=== PATIENT | male | born 1985 | race Caucasian/White ===

== ENCOUNTER 2018-12-04 10:13 | Emergency (ER) | payer BC ==
[2018-12-04] MEDS ORDERED: Diphtheria,Pertussis(Acell),Tetanus Vaccine 0.5 ML Syringe IM ONE (10:25)
[2018-12-04] MEDS ORDERED: Octyl 2-Cyanoacrylate 1 Tube ONE (10:59)
[2018-12-04] MEDS ORDERED: Octyl 2-Cyanoacrylate 1 Tube TOP ONE (10:59)
--- NOTE | 2018-12-04 11:08 | EDM.PDOC ---
ED HPI GENERAL MEDICAL PROBLEM - General Chief Complaint: Laceration Stated Complaint: CUT HAND Time Seen by Provider: 12/04/18 10:18 Source of Information: Reports: Patient History Limitations: Reports: No Limitations - History of Present Illness INITIAL COMMENTS - FREE TEXT/NARRATIVE: HISTORY AND PHYSICAL: History of present illness: Patient is a 33-year-old male who presents to the emergency room with complaints of a laceration to the right palmar surface of his hand along the base of the thumb. He states he was walking on ice when he slipped and fell, landing his hand on a rock on the ground. Review of systems: As per history of present illness and below otherwise all systems reviewed and negative. Past medical history: As per history of present illness and as reviewed below otherwise noncontributory. Surgical history: As per history of present illness and as reviewed below otherwise noncontributory. Social history: See social history for further information Family history: As per history of present illness and as reviewed below otherwise noncontributory. Physical exam: General: Well-developed and well-nourished 33-year-old male. Alert and oriented. Nontoxic appearing and in no acute distress. HEENT: Atraumatic, normocephalic, pupils equal and reactive bilaterally, negative for conjunctival pallor or scleral icterus, mucous membranes moist, TMs normal bilaterally, throat clear, neck supple, nontender, trachea midline. No drooling or trismus noted. No meningeal signs. No hot potato voice noted. Lungs: Clear to auscultation, breath sounds equal bilaterally, chest nontender. Heart: S1S2, regular rate and rhythm without overt murmur Abdomen: Soft, nondistended, nontender. Negative for masses or hepatosplenomegaly. Negative for costovertebral tenderness. Pelvis: Stable nontender. Genitourinary: Deferred. Rectal: Deferred. Skin: 7 cm linear laceration across the palmar surface of the right hand near the base of the thumb. 5 cm of this is gaping, the other 2 cm superficial. Otherwise skin is intact, warm, dry. No lesions or rashes noted. Extremities: Atraumatic, negative for cords or calf pain. Neurovascular unremarkable. Neuro: Awake, alert, oriented. Cranial nerves II through XII unremarkable. Cerebellum unremarkable. Motor and sensory unremarkable throughout. Exam nonfocal. Notes: Area was thoroughly cleansed and irrigated with wound wash. 1% lidocaine was used to anesthetize the area. Sterile unusual customary procedures were followed for suture placement. 4-0 nylon, #10 sutures were placed to the open laceration, Dermabond was used along the 2 cm superficial laceration. Patient tolerated well. Nonstick dressing applied. Supportive care measures were reviewed and discussed. Voices understanding and is agreeable to plan of care. Denies any further questions or concerns at this time. Diagnostics: None Therapeutics: Tetanus up-to-date, wound care, 1% lidocaine, nonstick dressing Prescription: None Impression: Laceration Plan: 1. Keep the area clean and dry. Continue to monitor for signs of infection. Sutures to be removed in 7-10 days. 2. Tylenol and/or ibuprofen as needed for pain management. 3. Please follow-up with your primary care provider in the next 1-2 days. Return to the ED as needed and as discussed. Definitive disposition and diagnosis as appropriate pending reevaluation and review of above. Right Hand Pain Score (Numeric/FACES): 3 - Related Data Allergies Allergy/AdvReac Type Severity Reaction Status Date / Time No Known Allergies Allergy Verified 12/04/18 10:24 Home Meds: Home Meds . [No Known Home Meds] 12/04/18 [History] Past Medical History - Past Health History Medical/Surgical History: Denies Medical/Surgical History - Infectious Disease History Infectious Disease History: Reports: Chicken Pox Social & Family History - Family History Family Medical History: Noncontributory - Tobacco Use Smoking Status *Q: Light Tobacco Smoker Years of Tobacco use: 13 Packs/Tins Daily: 0.5 Used Tobacco, but Quit: Yes Month/Year Tobacco Last Used: 2 - Caffeine Use Caffeine Use: Reports: Coffee - Recreational Drug Use Recreational Drug Use: No ED ROS GENERAL - Review of Systems Review Of Systems: ROS reveals no pertinent complaints other than HPI. ED EXAM, SKIN/RASH Exam: See Below (See dictation) ED SKIN PROCEDURES - Laceration/Wound Repair right hand Lac/Wound length In cm: 7 Appearance: Linear, Clean Distal NVT: Neuro & Vascular Intact, No Tendon Injury Local Anesthesia - Lidocaine (Xylocaine): 1% Plain Local Anesthetic Volume: Other (7cc) Skin Prep: Chlorhexidine (Hibiciens), Saline Saline Irrigation (cc's): 50 Exploration/Debridement/Repair: Wound Explored, No Foreign Material Found Closed with: Sutures, Dermabond Suture Size: 4-0 # of Sutures: 10 Suture Type: Nylon Sterile Dressing Applied: Provider Tetanus Status Addressed: Yes Complications: No Course - Vital Signs Last Recorded V/S: Last Vital Signs Temp 97.9 F 12/04/18 10:25 Pulse 77 12/04/18 10:25 Resp 17 12/04/18 10:25 BP 134/88 12/04/18 10:25 Pulse Ox 96 12/04/18 10:25 - Orders/Labs/Meds Orders: Active Orders 24 hr Category Date Time Status Communication Order [RC] STAT Care 12/04/18 10:25 Active Vaccines to be Administered [RC] PER UNIT ROUTINE Care 12/04/18 10:25 Active Meds: Medications Discontinued Medications Generic Name Dose Route Start Last Admin Trade Name Freq PRN Reason Stop Dose Admin Diphtheria/Tetanus/Acell Pertussis 0.5 ml 12/04/18 10:25 12/04/18 10:34 Adacel IM 12/04/18 10:26 0.5 ml .ONCE ONE Administration Lidocaine HCl 10 ml 12/04/18 10:25 12/04/18 10:34 Xylocaine-Mpf 1% INJECT 12/04/18 10:26 10 ml ONETIME ONE Administration Octyl Cyanoacrylate 1 applic 12/04/18 10:59 Dermabond Advance TOP 12/04/18 11:00 ONETIME ONE Octyl Cyanoacrylate Confirm 12/04/18 10:59 12/04/18 11:05 Dermabond Advance Administered 12/04/18 11:00 Not Given Dose 1 applic .ROUTE .STK-MED ONE Departure - Departure Time of Disposition: 11:03 Disposition: Home, Self-Care 01 Clinical Impression: Laceration of hand Qualifiers: Encounter type: initial encounter Foreign body presence: without foreign body Laterality: right Qualified Code(s): S61.411A - Laceration without foreign body of right hand, initial encounter - Discharge Information Instructions: Laceration Care, Adult, [id number], Stitches, Gia, or Adhesive Wound Closure, [id number] Referrals: PCP,Unknown [Primary Care Provider] - Forms: ED Department Discharge Additional Instructions: The following information is given to patients seen in the emergency department who are being discharged to home. This information is to outline your options for follow-up care. We provide all patients seen in our emergency department with a follow-up referral. The need for follow-up, as well as the timing and circumstances, are variable depending upon the specifics of your emergency department visit. If you don't have a primary care physician on staff, we will provide you with a referral. We always advise you to contact your personal physician following an emergency department visit to inform them of the circumstance of the visit and for follow-up with them and/or the need for any referrals to a consulting specialist. The emergency department will also refer you to a specialist when appropriate. This referral assures that you have the opportunity for follow-up care with a specialist. All of these measure are taken in an effort to provide you with optimal care, which includes your follow-up. Under all circumstances we always encourage you to contact your private physician who remains a resource for coordinating your care. When calling for follow-up care, please make the office aware that this follow-up is from your recent emergency room visit. If for any reason you are refused follow-up, please contact the [facility] Emergency Department at and asked to speak to the emergency department charge nurse. [facility] [address] [place] [id number] [address] [address] 1. Keep the area clean and dry. Continue to monitor for signs of infection. Sutures to be removed in 7-10 days. 2. Tylenol and/or ibuprofen as needed for pain management. 3. Please follow-up with your primary care provider in the next 1-2 days. Return to the ED as needed and as discussed. - My Orders Last 24 Hours: My Active Orders 12/04/18 10:25 Communication Order [RC] STAT Vaccines to be Administered [RC] PER UNIT ROUTINE - Assessment/Plan Last 24 Hours: My Active Orders 12/04/18 10:25 Communication Order [RC] STAT Vaccines to be Administered [RC] PER UNIT ROUTINE
== END 2018-12-04 11:21 | disposition home or self-care (01) ==
LOC: MW.ED 10:13
DX: S61.411A Laceration without foreign body of right hand, initial encounter (principal); F17.210 Nicotine dependence, cigarettes, uncomplicated; Z23 Encounter for immunization; W00.0XXA Fall on same level due to ice and snow, initial encounter
CPT/HCPCS: 12002; 90471; 90715; 99282; A9270; J2001

== ENCOUNTER 2020-03-18 17:51 | Emergency (ER) | payer BC ==
[2020-03-18] MEDS ORDERED: Lidocaine 1% with EPINEPHrine 1:100,000 10 ML MDV INJECT ONE ×2 (17:54→18:35)
[2020-03-18] MEDS ORDERED: Ondansetron 4 MG/2 ML SDV IVPUSH ONE (18:02)
--- NOTE | 2020-03-18 18:04 | EDM.PDOC ---
ED HPI GENERAL MEDICAL PROBLEM - General Chief Complaint: Laceration Stated Complaint: HEAD LACERATION Time Seen by Provider: 03/18/20 17:52 Source of Information: Reports: Patient History Limitations: Reports: No Limitations - History of Present Illness INITIAL COMMENTS - FREE TEXT/NARRATIVE: HISTORY AND PHYSICAL: History of present illness: Patient is a 34-year-old male who presents to the emergency room with complaints of a scalp laceration. Prior to arrival he was jumping off the side of the boat when his head hit the overhang resulting in the laceration. He denies any loss of consciousness. Bleeding is only controlled with direct firm pressure. He states he has had a few alcoholic beverages prior to arrival. States he currently feels "woozy and nauseated". Patient denies any fever, chills, headache, change in vision, syncope or near syncope. Denies any chest pain, back pain, shortness of breath or cough. Besides nausea, he denies any GI or symptoms. Tetanus updated in 2019. Review of systems: As per history of present illness and below otherwise all systems reviewed and negative. Past medical history: As per history of present illness and as reviewed below otherwise noncontributory. Surgical history: As per history of present illness and as reviewed below otherwise noncontributory. Social history: See social history for further information Family history: As per history of present illness and as reviewed below otherwise noncontributory. Physical exam: General: Well-developed and well-nourished 34-year-old male. Alert and oriented . Nontoxic-appearing and in moderate discomfort due to injury. Vital signs are stable and have been reviewed by me. HEENT: Large scalp laceration with active bleeding (see SKIN for details), normocephalic, pupils equal and reactive bilaterally, negative for conjunctival pallor or scleral icterus, mucous membranes moist, TMs normal bilaterally, throat clear, neck supple, nontender, trachea midline. No drooling or trismus noted. No meningeal signs. No hot potato voice noted. Lungs: Clear to auscultation, breath sounds equal bilaterally, chest nontender. Heart: S1S2, regular rate and rhythm without overt murmur Abdomen: Soft, nondistended, nontender. Skin: Approx 7.5 cm laceration to right upper scalp/temporal region, through the muscle down to the skull. 2 cm deep. Otherwise remaining skin is intact, warm, dry. No lesions or rashes noted. Extremities: Atraumatic, moves all extremities per self without difficulty or deficits, negative for cords or calf pain. Neurovascular unremarkable. Neuro: Awake, alert, oriented. Cranial nerves II through XII unremarkable. Cerebellum unremarkable. Motor and sensory unremarkable throughout. Exam nonfocal. Notes: I did have Dr Resendiz involved in this case upon patient arrival. 1800: Dr Pierson was consulted on this case. She recommends that I place some gita to close the area and applied direct pressure until she is able to come and evaluate the patient. Area was thoroughly irrigated and cleansed, there is some spurting coming from and artery mid laceration. #6 gita were placed. Sterile 4 x 4's and Kash wrap was applied and secured. The nurse did go one-on-one with this patient to head CT to monitor the laceration site and patient's status. Dr. Pierson here to evaluate patient, with assistance the gita were removed and the site was explored. Please see her note for details. Vital signs are stable. Secondary evaluation was completed. Besides the scalp laceration there is no evidence of any other trauma. CT showed shows scalp injury with gita no acute intracranial abnormality is noted. Ancef given per Dangelo order. We discussed signs and symptoms that would prompt him to return to the emergency room. Head injury instructions were reviewed and discussed. Supportive care measures were reviewed and discussed. Voices understanding and is agreeable to plan of care. Denies any further questions or concerns at this time. Diagnostics: CBC, CMP, INR, Type and Screen, Head CT Therapeutics: LR, Zofran, lidocaine with epinephrine, Ancef 2 gm, bacitracin ointment Prescription: Bactrim BID x 10 days Impression: Head injury Complex scalp laceration Plan: 1. Keep the area clean and dry. Continue to monitor for signs of infection. You can continue to wash your hair as normal, just be gentle around the staple sites. [place] to be removed in about 10 days. 2. Please review and follow the head injury instructions that we discussed and that are printed in your discharge packet. Limit any physical activities and follow cognitive rest (decrease screen time, reading, tv, etc..) over the next 24 hours pending resolution of symptoms. 3. Tylenol and/or ibuprofen as needed for pain management. 4. Follow-up with your primary care provider as we discussed. Return to the ED as needed and as discussed. Definitive disposition and diagnosis as appropriate pending reevaluation and review of above. - Related Data Allergies Allergy/AdvReac Type Severity Reaction Status Date / Time No Known Allergies Allergy Verified 03/18/20 18:14 Home Meds: Home Meds Sulfamethoxazole/Trimethoprim [Bactrim Ds Tablet] 1 each PO BID 10 Days #20 tablet 03/18/20 [Rx] Past Medical History - Past Health History Medical/Surgical History: Denies Medical/Surgical History - Infectious Disease History Infectious Disease History: Reports: Chicken Pox Social & Family History - Family History Family Medical History: Noncontributory - Caffeine Use Caffeine Use: Reports: Coffee ED ROS GENERAL - Review of Systems Review Of Systems: Comprehensive ROS is negative, except as noted in HPI. ED EXAM, SKIN/RASH Exam: See Below (See dictation) ED SKIN PROCEDURES - Laceration/Wound Repair Scalp Appearance: Subcutaneous, Muscle, Linear, Clean Distal NVT: Neuro & Vascular Intact, No Tendon Injury Skin Prep: Chlorhexidine (Hibiciens), Saline, Sterile Drape Saline Irrigation (cc's): 50 Exploration/Debridement/Repair: Wound Explored, In a Bloodless Field, Explored to Base, No Foreign Material Found Closed with: [place] Lac/Wound length In cm: 7.5 # of Sutures: 6 Drain Placement: No Sterile Dressing Applied: Provider Tetanus Status Addressed: Yes Complications: No Progress/Comments: Pressure dressing applied over temporary gita - Until Dr Pierson can come evaluate patient. [place] were removed and sutures were placed by Dr Pierson - please she her note Course - Vital Signs Last Recorded V/S: Last Vital Signs Temp Pulse 86 03/18/20 18:00 Resp 17 03/18/20 18:00 BP 131/53 L 03/18/20 18:00 Pulse Ox 96 03/18/20 18:00 - Orders/Labs/Meds Orders: Active Orders 24 hr Category Date Time Status Notify Provider Consults [RC] ASDIRECTED Care 03/18/20 19:11 Active Consult to Physician [CONS] Stat Cons 03/18/20 19:10 Active Lactated Ringers [Ringers, Lactated] 1,000 ml Med 03/18/20 18:15 Active IV .BOLUS ceFAZolin [Ancef] 2 gm Med 03/18/20 19:22 Ordered Premix Bag 1 bag IV ONETIME Medication Orders Lactated Ringer's (Ringers, Lactated) 1,000 mls @ 999 mls/hr IV .BOLUS BILL Last Admin: 03/18/20 18:39 Dose: 999 mls/hr Documented by: MEGHA Cefazolin Sodium/Dextrose 2 gm (/ Premix) 50 mls @ 100 mls/hr IV ONETIME ONE Stop: 03/18/20 19:51 Labs: Laboratory Tests 03/18/20 03/18/20 03/18/20 Range/Units 18:10 18:10 18:10 WBC 9.14 (4.0-11.0) K/uL RBC 5.75 (4.50-5.90) M/uL Hgb 16.2 (13.0-17.0) g/dL Hct 49.1 (38.0-50.0) % MCV 85.4 (80.0-98.0) fL MCH 28.2 (27.0-32.0) pg MCHC 33.0 (31.0-37.0) g/dL RDW Std Deviation 42.8 (28.0-62.0) fl RDW Coeff of Stacey 14 (11.0-15.0) % Plt Count 294 (150-400) K/uL MPV 10.50 (7.40-12.00) fL Neut % (Auto) 75.2 (48.0-80.0) % Lymph % (Auto) 17.9 (16.0-40.0) % [place] % (Auto) 4.4 (0.0-15.0) % Eos % (Auto) 2.4 (0.0-7.0) % Baso % (Auto) 0.1 (0.0-1.5) % Neut # (Auto) 6.9 H (1.4-5.7) K/uL Lymph # (Auto) 1.6 (0.6-2.4) K/uL [place] # (Auto) 0.4 (0.0-0.8) K/uL Eos # (Auto) 0.2 (0.0-0.7) K/uL Baso # (Auto) 0.0 (0.0-0.1) K/uL Nucleated RBC % 0.0 /100WBC Nucleated RBCs # 0 K/uL INR Sodium 142 (136-148) mmol/L Potassium 3.9 (3.5-5.1) mmol/L Chloride 104 (98-107) mmol/L Carbon Dioxide 28.1 (21.0-32.0) mmol/L BUN 10 (7.0-18.0) mg/dL Creatinine 1.3 (0.8-1.3) mg/dL Est Cr Clr Drug Dosing 94.85 mL/min Estimated GFR (MDRD) > 60.0 ml/min Glucose 91 (74-106) mg/dL Calcium 8.7 (8.5-10.1) mg/dL Total Bilirubin 0.4 (0.2-1.0) mg/dL AST 23 (15-37) IU/L ALT 38 (14-63) IU/L Alkaline Phosphatase 53 (46-116) U/L Total Protein 5.9 L (6.4-8.2) g/dL Albumin 3.1 L (3.4-5.0) g/dL Globulin 2.8 (2.6-4.0) g/dL Albumin/Globulin Ratio 1.1 (0.9-1.6) Blood Type A POSITIVE Antibody Screen NEGATIVE 03/18/20 Range/Units 18:10 WBC (4.0-11.0) K/uL RBC (4.50-5.90) M/uL Hgb (13.0-17.0) g/dL Hct (38.0-50.0) % MCV (80.0-98.0) fL MCH (27.0-32.0) pg MCHC (31.0-37.0) g/dL RDW Std Deviation (28.0-62.0) fl RDW Coeff of Stacey (11.0-15.0) % Plt Count (150-400) K/uL MPV (7.40-12.00) fL Neut % (Auto) (48.0-80.0) % Lymph % (Auto) (16.0-40.0) % [place] % (Auto) (0.0-15.0) % Eos % (Auto) (0.0-7.0) % Baso % (Auto) (0.0-1.5) % Neut # (Auto) (1.4-5.7) K/uL Lymph # (Auto) (0.6-2.4) K/uL [place] # (Auto) (0.0-0.8) K/uL Eos # (Auto) (0.0-0.7) K/uL Baso # (Auto) (0.0-0.1) K/uL Nucleated RBC % /100WBC Nucleated RBCs # K/uL INR 1.11 Sodium (136-148) mmol/L Potassium (3.5-5.1) mmol/L Chloride (98-107) mmol/L Carbon Dioxide (21.0-32.0) mmol/L BUN (7.0-18.0) mg/dL Creatinine (0.8-1.3) mg/dL Est Cr Clr Drug Dosing mL/min Estimated GFR (MDRD) ml/min Glucose (74-106) mg/dL Calcium (8.5-10.1) mg/dL Total Bilirubin (0.2-1.0) mg/dL AST (15-37) IU/L ALT (14-63) IU/L Alkaline Phosphatase (46-116) U/L Total Protein (6.4-8.2) g/dL Albumin (3.4-5.0) g/dL Globulin (2.6-4.0) g/dL Albumin/Globulin Ratio (0.9-1.6) Blood Type Antibody Screen Meds: Medications Generic Name Dose Route Start Last Admin Trade Name Freq PRN Reason Stop Dose Admin Lactated Ringer's 1,000 mls @ 999 mls/hr 03/18/20 18:15 03/18/20 18:39 Ringers, Lactated IV 999 mls/hr .BOLUS BILL Administration Cefazolin Sodium/Dextrose 2 gm 50 mls @ 100 mls/hr 03/18/20 19:22 / Premix IV 03/18/20 19:51 ONETIME ONE Discontinued Medications Generic Name Dose Route Start Last Admin Trade Name Freq PRN Reason Stop Dose Admin Bacitracin 1 dose 03/18/20 19:15 03/18/20 19:19 Bacitracin Oint 1 Gm TOP 03/18/20 19:16 1 dose ONETIME ONE Administration Lidocaine/Epinephrine 10 ml 03/18/20 17:54 03/18/20 19:17 Xylocaine 1% With Epinephrine 1:100,000 INJECT 03/18/20 17:55 Not Given ONETIME ONE Lidocaine/Epinephrine 20 ml 03/18/20 18:35 03/18/20 19:16 Xylocaine 1% With Epinephrine 1:100,000 INJECT 03/18/20 18:36 20 ml ONETIME ONE Administration Lidocaine/Epinephrine Confirm 03/18/20 18:37 03/18/20 19:17 Xylocaine 1% With Epinephrine 1:100,000 Administered 03/18/20 18:38 Not Given Dose 20 ml .ROUTE .STK-MED ONE Ondansetron HCl 4 mg 03/18/20 18:02 03/18/20 18:39 Zofran IVPUSH 03/18/20 18:03 4 mg ONETIME ONE Administration Departure - Departure Time of Disposition: 19:29 Disposition: Home, Self-Care 01 Clinical Impression: Laceration of scalp with complication Qualifiers: Encounter type: initial encounter Qualified Code(s): S01.01XA - Laceration without foreign body of scalp, initial encounter Head injury Qualifiers: Encounter type: initial encounter Qualified Code(s): S09.90XA - Unspecified injury of head, initial encounter - Discharge Information Prescriptions: Sulfamethoxazole/Trimethoprim [Bactrim Ds Tablet] 1 each PO BID 10 Days #20 tablet Instructions: Laceration Care, Adult, [id number] Referrals: PCP,None [Primary Care Provider] - Forms: ED Department Discharge Additional Instructions: The following information is given to patients seen in the emergency department who are being discharged to home. This information is to outline your options for follow-up care. We provide all patients seen in our emergency department with a follow-up referral. The need for follow-up, as well as the timing and circumstances, are variable depending upon the specifics of your emergency department visit. If you don't have a primary care physician on staff, we will provide you with a referral. We always advise you to contact your personal physician following an emergency department visit to inform them of the circumstance of the visit and for follow-up with them and/or the need for any referrals to a consulting specialist. The emergency department will also refer you to a specialist when appropriate. This referral assures that you have the opportunity for follow-up care with a specialist. All of these measure are taken in an effort to provide you with optimal care, which includes your follow-up. Under all circumstances we always encourage you to contact your private physician who remains a resource for coordinating your care. When calling for follow-up care, please make the office aware that this follow-up is from your recent emergency room visit. If for any reason you are refused follow-up, please contact the [facility] Emergency Department at and asked to speak to the emergency department charge nurse. [facility] [address] [place] [id number] [facility] [address] [place] [id number] 1. Keep the area clean and dry. Continue to monitor for signs of infection. You can continue to wash your hair as normal, just be gentle around the staple sites. Gita to be removed in about 10 days. 2. Please review and follow the head injury instructions that we discussed and that are printed in your discharge packet. Limit any physical activities and follow cognitive rest (decrease screen time, reading, tv, etc..) over the next 24 hours pending resolution of symptoms. 3. Tylenol and/or ibuprofen as needed for pain management. 4. Follow-up with your primary care provider as we discussed. Return to the ED as needed and as discussed. Critical Care Note - Critical Care Note Total Time (mins): 30 Comments: Patient required 1:1 patient care to control arterial bleed of scalp Sepsis Event Note (ED) - Focused Exam Vital Signs: Vital Signs Pulse Resp BP Pulse Ox 03/18/20 18:00 86 17 131/53 L 96 - My Orders Last 24 Hours: My Active Orders 03/18/20 18:15 Lactated Ringers [Ringers, Lactated] 1,000 ml IV .BOLUS 03/18/20 19:10 Consult to Physician [CONS] Stat 03/18/20 19:11 Notify Provider Consults [RC] ASDIRECTED 03/18/20 19:22 ceFAZolin [Ancef] 2 gm Premix Bag 1 bag IV ONETIME - Assessment/Plan Last 24 Hours: My Active Orders 03/18/20 18:15 Lactated Ringers [Ringers, Lactated] 1,000 ml IV .BOLUS 03/18/20 19:10 Consult to Physician [CONS] Stat 03/18/20 19:11 Notify Provider Consults [RC] ASDIRECTED 03/18/20 19:22 ceFAZolin [Ancef] 2 gm Premix Bag 1 bag IV ONETIME
[2020-03-18] MEDS ORDERED: Lactated Ringers 1,000 ML IV SCH (18:15)
--- NOTE | 2020-03-18 18:36 | CT ---
Head CT Technique: Multiple axial sections through the brain were obtained. Intravenous contrast was not utilized. Comparison: No prior intracranial imaging is available. Findings: Ventricles along with basal cisterns and sulci over the convexities are within normal limits for the patient's age. No abnormal parenchymal densities are seen. No evidence of intracranial hemorrhage. No midline shift or mass-effect is seen. Scalp injury as noted with skin gita in place. No acute calvarial abnormality is appreciated. Visualized mastoid sinuses and paranasal sinuses show nothing acute. Impression: 1. Scalp injury. 2. No acute intracranial abnormality is seen. No acute calvarial abnormality is seen. Diagnostic code #2 This report was dictated in MDT
[2020-03-18] MEDS ORDERED: Lidocaine 1% with EPINEPHrine 1:100,000 20 ML MDV ONE (18:37)
[2020-03-18 18:58] LABS: BLOOD UREA NITROGEN,BUN 10 mg/dL (7.0-18.0); CARBON DIOXIDE,CO2 28.1 mmol/L (21.0-32.0); CHLORIDE,CL 104 mmol/L (98-107); GLUCOSE RANDOM 91 mg/dL (74-106); POTASSIUM,K 3.9 mmol/L (3.5-5.1); SODIUM,NA 142 mmol/L (136-148)
[2020-03-18] MEDS ORDERED: Bacitracin Oint 1 GM U/D Packet TOP ONE (19:15)
[2020-03-18] MEDS ORDERED: ceFAZolin 2 GM in Premix Bag 1 BAG IV ONE (19:22)
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
== END 2020-03-18 22:03 | disposition home or self-care (01) ==
LOC: MW.ED 17:51
DX: S01.01XA Laceration without foreign body of scalp, initial encounter (principal); W22.8XXA Striking against or struck by other objects, initial encounter
CPT/HCPCS: 12002; 36415; 70450; 70450-26; 80053; 85025; 85610; 86850; 86900; 86901; 96361; 96365; 96375; 99283; 99284-25; J0690; J2405; J7120